=== PATIENT | male | born 1970 | race American Indian/Alaskan Native ===

== ENCOUNTER 2018-11-07 21:11 | Emergency (ER) | payer MEDICAID, MEDICARE ==
--- NOTE | 2018-11-07 21:35 | Emergency Department Report ---
Blank Doc - Documentation Documentation: This is a [id number] that presents with right flank pain with radiation to r ight upper abdominal. Stated has some nausea with no vomiting. Denies any urinary symptoms. This initial assessment/diagnostic orders/clinical plan/treatment(s) is/are subject to change based on patient's health status, clinical progression and re- assessment by fellow clinical providers in the ED. Further treatment and workup at subsequent clinical providers discretion. Patient/guardians urged not to elope from the ED as their condition may be serious if not clinically assessed and managed. Initial orders include: 1- Patient sent to [facility] for further evaluation and treatment 2- UA 3- Labs
[2018-11-07 22:05] LABS: Basophils # (Auto) 0.1 K/mm3 (0.0-0.1); Eosinophils # (Auto) 0.1 K/mm3 (0.0-0.4); Lymphocytes % (Auto) 26.5 % (13.4-35.0); Mean Corpuscular HGB Conc 36 % (32-34); Mean Corpuscular Volume 94 fl (84-94); Monocytes # (Auto) 0.6 K/mm3 (0.0-0.8); Monocytes % (Auto) 5.6 % (0.0-7.3); Platelet Count 288 K/mm3 (140-440); Red Blood Count 3.98 M/mm3 (3.65-5.03); Red Cell Distribution Width 14.2 % (13.2-15.2)
[2018-11-07 22:06] LABS: Bilirubin,Urine NEG (Negative); Blood,Urine SM (Negative); Color,Urine Straw (Yellow); Protein,Urine <15 mg/dL mg/dL (Negative); RBC,Urine < 1.0 /HPF (0.0-6.0); Urobilinogen,Urine < 2.0 mg/dL (<2.0)
[2018-11-07 22:14] LABS: Hematocrit 37.6 % (35.5-45.6); Hemoglobin 13.6 gm/dl (11.8-15.2)
[2018-11-07 22:21] LABS: BUN/Creatinine Ratio 11; Blood Urea Nitrogen 17 mg/dL (9-20); Calcium 8.8 mg/dL (8.4-10.2); Hemolysis Index 14
--- NOTE | 2018-11-08 00:14 | Cat Scan Report ---
PROCEDURE: CT abdomen and pelvis without contrast. TECHNIQUE: Computerized axial tomography of the abdomen and pelvis was performed without intravenous contrast. This study is performed without intravascular contrast material and its sensitivity for ab dominal and pelvic pathology, including neoplasms, inflammation, abscess, free fluid, thrombosis, art erial dissection and infarction, is reduced compared with a contrast enhanced study. CT DOSE LENGTH PRODUCT: 1445.89 mGycm HISTORY: Left flank pain. COMPARISONS: None. FINDINGS: The lung bases are grossly clear. There are no pleural effusions. The heart size is normal. There may be gynecomastia present. The liver, pancreas and spleen are grossly normal. The gallbladder is contr acted. There is no biliary dilatation. The adrenal glands are not enlarged. Both kidneys appear fairl y small. There are are extensive arterial calcifications in both kidneys. There is no hydronephrosis. There are probably some tiny renal cysts bilaterally. The abdominal aorta has a normal caliber. Ther e is atherosclerotic calcification in the abdominal aorta and iliac arteries. There is no retroperito sophia adenopathy. The unopacified gastrointestinal tract is unremarkable. A normal appendix is visible . The bladder is empty. The seminal vesicles are small. The prostate is incompletely imaged. The luis e onal skeleton appears intact. There are several enlarged veins in the anterior abdominal wall. These may represent collateral flow pathways. The inferior vena cava is quite narrow at the level of the re nal veins. Above and below this level the inferior vena cava has a more normal caliber. Patency of th e inferior vena cava would be better evaluated by ultrasound scanning. IMPRESSION: Probable gynecomastia. Small kidneys with extensive arterial calcifications. Probable ti ny renal cysts. Possible narrowing or stenosis of the inferior vena cava near the renal veins. Enlarg ed venous channels in the anterior abdominal wall, possibly representing collateral flow pathways. This document is electronically signed by Santiago Barahona MD., November 08 2018 12:11:23 AM ET
[2018-11-08] MEDS ORDERED: TORADOL IM ONE (00:52)
[2018-11-08 01:20] VITALS: BP 123/80
--- NOTE | 2018-11-08 01:26 | Emergency Department Report ---
ED Abdominal Pain HPI - General Chief Complaint: Abdominal Pain Stated Complaint: ABD PAIN Time Seen by Provider: 11/07/18 21:33 Source: patient Mode of arrival: Ambulatory Limitations: Other - History of Present Illness Initial Comments: Pt is deaf, is able to read and write, history obtained by writing on a sheet of paper. Pt writes responses. Pt presents with right sided flank pain that began yesterday. The patient states that the pain feels like it is wrapping around the the side of the abdomen. Pt has associated nausea. Pt denies any fever, urinary sx, and emesis. The patient describes the pain as a burning, pinching, and sharp pain. The patient states he has a hx of kidney stones about 10 years ago. Pt past abdominal surgical hx: cholecystecomy Complaint: flank pain Onset/Timin -: days(s) Location: R flank Migration to: RUQ Severity: moderate Severity scale (0 -10): 6 Quality: stabbing, burning Consistency: intermittent Associated Symptoms: nausea. denies: vomiting, diarrhea, fever, chills, dysuria, hematemesis, hematochezia, melena, hematuria, anorexia, syncope - Related Data Previous Rx's Medication Instructions Recorded Last Taken Type Baclofen [Lioresal] 10 mg PO TID #10 tab 11/08/18 Unknown Rx Naproxen 250 mg PO Q6HR #20 tablet 11/08/18 Unknown Rx Allergies Allergy/AdvReac Type Severity Reaction Status Date / Time No Known Allergies Allergy Unverified 11/07/18 21:20 ED Review of Systems ROS: Stated complaint: ABD PAIN Other details as noted in HPI Comment: All other systems reviewed and negative ED Past Medical Hx - Past Medical History Additional medical history: deaf - Surgical History Past Surgical History?: No - Social History Smoking Status: Never Smoker Substance Use Type: None - Medications Home Medications: Home Medications Medication Instructions Recorded Confirmed Last Taken Type Baclofen [Lioresal] 10 mg PO TID #10 tab 11/08/18 Unknown Rx Naproxen 250 mg PO Q6HR #20 tablet 11/08/18 Unknown Rx ED Physical Exam - General Limitations: Other General appearance: alert, in no apparent distress - Head Head exam: Present: atraumatic, normocephalic - Eye Eye exam: Present: normal appearance - ENT ENT exam: Present: normal exam - Respiratory Respiratory exam: Present: normal lung sounds bilaterally. Absent: respiratory distress, wheezes, rales, rhonchi, stridor, chest wall tenderness, accessory muscle use, decreased breath sounds, prolonged expiratory - Cardiovascular Cardiovascular Exam: Present: regular rate, normal rhythm, normal heart sounds. Absent: bradycardia, tachycardia, irregular rhythm, systolic murmur, diastolic murmur, rubs, gallop - GI/Abdominal GI/Abdominal exam: Present: soft, normal bowel sounds (right CVA tenderness, no abdominal tenderness). Absent: distended, guarding, rebound, rigid - Neurological Exam Neurological exam: Present: alert, oriented X3 - Psychiatric Psychiatric exam: Present: normal affect, normal mood - Skin Skin exam: Present: warm, dry, intact ED Course Vital Signs 11/07/18 11/08/18 11/08/18 21:36 01:16 01:17 Temperature 98 F 98.1 F Pulse Rate 76 72 Respiratory 16 16 16 Rate Blood Pressure 127/82 Blood Pressure 123/80 [Left] O2 Sat by Pulse 98 97 Oximetry 11/08/18 01:47 Temperature Pulse Rate Respiratory 16 Rate Blood Pressure Blood Pressure [Left] O2 Sat by Pulse Oximetry - Reevaluation(s) Reevaluation #1: 11/08/18 01:28 CT abd/pelvis was done on wrong pt which caused a delay in Mr. Roman receiving h is scan in a timely manner Reevaluation #2: 11/08/18 02:30 CT reading that is in patients chart right now is for another patient. entered incorrectly by the CT department. ED Medical Decision Making - Lab Data Result diagrams: 11/07/18 21:44 11/07/18 21:44 Laboratory Results - last 24 hr 11/07/18 11/07/18 11/07/18 21:38 21:44 21:44 WBC 11.2 H RBC 3.98 Hgb 13.6 Hct 37.6 MCV 94 MCH 34 H MCHC 36 H RDW 14.2 Plt Count 288 Lymph % (Auto) 26.5 [place] % (Auto) 5.6 Eos % (Auto) 1.0 Baso % (Auto) 1.0 Lymph # 3.0 [place] # 0.6 Eos # 0.1 Baso # 0.1 Seg Neutrophils % 65.9 Seg Neutrophils # 7.4 Sodium 137 Potassium 3.9 Chloride 102.2 Carbon Dioxide 22 Anion Gap 17 BUN 17 Creatinine 1.5 Estimated GFR > 60 BUN/Creatinine Ratio 11 Glucose 90 Calcium 8.8 Urine Color Straw Urine Turbidity Clear Urine pH 5.0 Ur Specific [employer] 1.010 Urine Protein <15 mg/dl Urine Glucose (UA) Neg Urine Ketones Neg Urine Blood Sm Urine Nitrite Neg Urine Bilirubin Neg Urine Urobilinogen < 2.0 Ur Leukocyte Esterase Neg Urine WBC (Auto) 1.0 Urine RBC (Auto) < 1.0 U Epithel Cells (Auto) 2.0 - Radiology Data Radiology results: report reviewed Ct abd/pelvis read by Dr. Telles: There has been a cholecystectomy, there are no kidney stones or ureteral stones. There is no hydronephrosis. There is no bowel obstruction, colitis, or enteritis. The appendix is normal. There is no ascites or free air, abscess or adenopathy. There is a defect at the inferior endplate of L4 suggesting Schmorls node. incidental bilateral hydroceles. - Medical Decision Making Pt presents for right sided flank pain since yesterday that radiates to the lateral side of the abdomen. Pt had right sided CVAT. Ct abd/pelvis was ordered which showed no acute abnormality. Believe pain to be due to a muscular strain. Will give pt anti inflammatory and small amount of muscle relaxer. Advised pt not to drive on muscle relaxer. Advised pt to follow up with PCP in the next 2-3 days. Discussed with pt by writing on sheet of paper to return to the ED if any new or worsening sx. Critical care attestation.: If time is entered above; I have spent that time in minutes in the direct care of this critically ill patient, excluding procedure time. ED Disposition Clinical Impression: Muscle strain Disposition: DC-01 TO HOME OR SELFCARE Is pt being admited?: No Does the pt Need Aspirin: No Condition: Stable Instructions: Muscle Strain (ED) Additional Instructions: Follow up with primary care doctor in the next 2-3 days. Do not take muscle relaxer while driving. Only take muscle relaxer at night. Prescriptions: Baclofen [Lioresal] 10 mg PO TID #10 tab Naproxen 250 mg PO Q6HR #20 tablet Referrals: PRIMARY CARE, [Primary Care Provider] - 3-5 Days Forms: Work/School Release Form(ED) Time of Disposition: 03:26 Print Language: ARABIC
== END 2018-11-08 04:00 | disposition home or self-care (01) ==
LOC: ED 21:11
DX: S39.011A Strain of muscle, fascia and tendon of abdomen, initial encounter (principal); X58.XXXA Exposure to other specified factors, initial encounter; Y93.9 Activity, unspecified; Y92.89 Other specified places as the place of occurrence of the external cause; Y99.8 Other external cause status
CPT/HCPCS: 36415; 74176; 80048; 81001; 85025; 96372; 99284; J1885

== ENCOUNTER 2021-07-14 18:05 | Emergency (ER) | payer MEDICARE, MEDICAID ==
[2021-07-14 18:32] VITALS: BP 133/83
[2021-07-14] MEDS ORDERED: ASPIRIN 325 MG TAB PO ONE (18:54)
--- NOTE | 2021-07-14 19:26 | Emergency Department Report ---
ED Chest Pain HPI - General Chief Complaint: Chest Pain Stated Complaint: CHEST PAIN Time Seen by Provider: 07/14/21 18:53 Source: patient Mode of arrival: Ambulatory Limitations: Other - History of Present Illness Initial Comments: Patient is deaf, pt states they are able to read and write and was asked if okay with continuing care by writing and pt agreed Patient is a 51-year-old biological male who presents emergency room with complaints of chest pain that began this morning. pt states the pain radiates over the the right side. Patient describes as a sharp pain. Patient has associated shortness of breath, dizziness, headache. Patient denies any nausea, vomiting, cough, fever, calf pain, leg swelling. Patient has a past medical history of HIV on antivirals. No allergies to medications. Non-smoker. Patient denies any family cardiac history. Patient denies recent travel or recent surgery. Patient is on hormone replacement therapy. - Related Data Previous Rx's Medication Instructions Recorded Last Taken Type Baclofen [Lioresal] 10 mg PO TID #10 tab 11/08/18 Unknown Rx Naproxen 250 mg PO Q6HR #20 tablet 11/08/18 Unknown Rx Naproxen 375 mg PO BID PRN #14 tablet 07/14/21 Unknown Rx Allergies Allergy/AdvReac Type Severity Reaction Status Date / Time No Known Allergies Allergy Verified 07/14/21 18:32 Heart Score - HEART Score History: Slightly suspicious EKG: Normal Age: 45-65 Risk factors: 1-2 risk factors Troponin: < normal limit HEART Score: 2 - EKG Read Time Time EKG Completed: 18:32 EKG Read Time: 18:36 ED Review of Systems ROS: Stated complaint: CHEST PAIN Other details as noted in HPI Comment: All other systems reviewed and negative ED Past Medical Hx - Past Medical History Previous Medical History?: No Hx HIV: Yes Additional medical history: deaf - Social History Smoking Status: Never Smoker Substance Use Type: None - Medications Home Medications: Home Medications Medication Instructions Recorded Confirmed Last Taken Type Baclofen [Lioresal] 10 mg PO TID #10 tab 11/08/18 Unknown Rx Naproxen 250 mg PO Q6HR #20 tablet 11/08/18 Unknown Rx Naproxen 375 mg PO BID PRN #14 tablet 07/14/21 Unknown Rx ED Physical Exam - General Limitations: Other General appearance: alert, in no apparent distress - Head Head exam: Present: atraumatic, normocephalic - Eye Eye exam: Present: normal appearance - ENT ENT exam: Present: mucous membranes moist - Respiratory Respiratory exam: Present: normal lung sounds bilaterally. Absent: respiratory distress, wheezes, rales, rhonchi, stridor, chest wall tenderness, accessory muscle use, decreased breath sounds, prolonged expiratory - Cardiovascular Cardiovascular Exam: Present: regular rate, normal rhythm, normal heart sounds. Absent: systolic murmur, diastolic murmur, rubs, gallop - Neurological Exam Neurological exam: Present: alert, oriented X3 - Psychiatric Psychiatric exam: Present: normal affect, normal mood - Skin Skin exam: Present: warm, dry, intact ED Course Vital Signs 07/14/21 07/14/21 18:30 23:53 Temperature 99 F Pulse Rate 72 76 Respiratory 18 18 Rate Blood Pressure 133/83 [Left] O2 Sat by Pulse 95 98 Oximetry ED Medical Decision Making - Lab Data Result diagrams: 07/14/21 19:11 07/14/21 19:11 Lab Results 07/14/21 07/14/21 07/14/21 Range/Units 19:11 19:11 19:11 WBC 8.3 (4.5-11.0) K/mm3 RBC 4.32 (3.65-5.03) M/mm3 Hgb 13.7 (11.8-15.2) gm/dl Hct 40.8 (35.5-45.6) % MCV 94 (84-94) fl MCH 32 (28-32) pg MCHC 34 (32-34) % RDW 13.9 (13.2-15.2) % Plt Count 312 (140-440) K/mm3 Lymph % (Auto) 43.5 H (13.4-35.0) % [place] % (Auto) 7.6 H (0.0-7.3) % Eos % (Auto) 2.7 (0.0-4.3) % Baso % (Auto) 1.0 (0.0-1.8) % Lymph # (Auto) 3.6 (1.2-5.4) K/mm3 [place] # (Auto) 0.6 (0.0-0.8) K/mm3 Eos # (Auto) 0.2 (0.0-0.4) K/mm3 Baso # (Auto) 0.1 (0.0-0.1) K/mm3 Seg Neutrophils % 45.2 (40.0-70.0) % Seg Neutrophils # 3.8 (1.8-7.7) K/mm3 D-Dimer 1426.25 H (0-234) ng/mlDDU Sodium 140 (137-145) mmol/L Potassium 4.9 (3.6-5.0) mmol/L Chloride 103.6 (98-107) mmol/L Carbon Dioxide 24 (22-30) mmol/L Anion Gap 17 mmol/L BUN 15 (9-20) mg/dL Creatinine 1.3 (0.8-1.3) mg/dL Estimated GFR > 60 ml/min BUN/Creatinine Ratio 12 % Glucose 92 (75-100) mg/dL Calcium 9.2 (8.4-10.2) mg/dL Total Bilirubin 0.40 (0.1-1.2) mg/dL AST 33 (5-40) units/L ALT 24 (7-56) units/L Alkaline Phosphatase 71 (35-129) units/L Troponin T < 0.010 (0.00-0.029) ng/mL Total Protein 7.6 (6.3-8.2) g/dL Albumin 4.3 (3.9-5) g/dL Albumin/Globulin Ratio 1.3 % 07/14/21 Range/Units 21:12 WBC (4.5-11.0) K/mm3 RBC (3.65-5.03) M/mm3 Hgb (11.8-15.2) gm/dl Hct (35.5-45.6) % MCV (84-94) fl MCH (28-32) pg MCHC (32-34) % RDW (13.2-15.2) % Plt Count (140-440) K/mm3 Lymph % (Auto) (13.4-35.0) % [place] % (Auto) (0.0-7.3) % Eos % (Auto) (0.0-4.3) % Baso % (Auto) (0.0-1.8) % Lymph # (Auto) (1.2-5.4) K/mm3 [place] # (Auto) (0.0-0.8) K/mm3 Eos # (Auto) (0.0-0.4) K/mm3 Baso # (Auto) (0.0-0.1) K/mm3 Seg Neutrophils % (40.0-70.0) % Seg Neutrophils # (1.8-7.7) K/mm3 D-Dimer (0-234) ng/mlDDU Sodium (137-145) mmol/L Potassium (3.6-5.0) mmol/L Chloride (98-107) mmol/L Carbon Dioxide (22-30) mmol/L Anion Gap mmol/L BUN (9-20) mg/dL Creatinine (0.8-1.3) mg/dL Estimated GFR ml/min BUN/Creatinine Ratio % Glucose (75-100) mg/dL Calcium (8.4-10.2) mg/dL Total Bilirubin (0.1-1.2) mg/dL AST (5-40) units/L ALT (7-56) units/L Alkaline Phosphatase (35-129) units/L Troponin T < 0.010 (0.00-0.029) ng/mL Total Protein (6.3-8.2) g/dL Albumin (3.9-5) g/dL Albumin/Globulin Ratio % - EKG Data EKG shows normal: sinus rhythm, intervals, QRS complexes, ST-T waves Rate: normal - EKG Data 07/14/21 19:27 LAD LAE no STEMI - Radiology Data Radiology results: report reviewed Ordering Physician: DEANNE PIZARRO Date of Service: 07/14/21 Procedure(s): XR chest routine 2V Accession Number(s): [id number] cc: DEANNE PIZARRO Fluoro Time In Minutes: CHEST 2 VIEWS INDICATION / CLINICAL INFORMATION: Chest Pain. COMPARISON: None available. FINDINGS: SUPPORT DEVICES: None. HEART / MEDIASTINUM: No significant abnormality. LUNGS / PLEURA: No significant pulmonary or pleural abnormality. No pneumothorax. ADDITIONAL FINDINGS: No significant additional findings. IMPRESSION: 1. No acute findings. Signer Name: Pete Figueroa MD Signed: 07/14/2021 7:21 PM Workstation Name: [id number] Transcribed By: TRAY Dictated By: Pete Figueroa MD Electronically Authenticated By: Pete Figueroa MD Signed Date/Time: 07/14/211920 DD/ 19 TD/TT: Ordering Physician: DEANNE PIZARRO Date of Service: 07/14/21 Procedure(s): CT angio chest Accession Number(s): [id number] cc: DEANNE PIZARRO CTA CHEST WITH CONTRAST INDICATION / CLINICAL INFORMATION: Chest pain with S.O.B., elevated D-dimer, on HRT. TECHNIQUE: Axial CT images were obtained through the chest after injection of 100 cc of Omnipaque 350 IV contrast. 3 plane MIP and/or 3D reconstructions were produced. All CT scans at this location are performed using CT dose reduction for ALARA by means of automated exposure control. COMPARISON: 11/07/2018 FINDINGS: PULMONARY ARTERIES: No pulmonary emboli. THORACIC AORTA: No significant abnormality. HEART: No significant abnormality. CORONARY ARTERY CALCIFICATION: None. MEDIASTINUM / LEIF: No significant abnormality. PLEURA: No pleural effusion. No pneumothorax. LUNGS: No acute air space or interstitial disease. ADDITIONAL FINDINGS: None. UPPER ABDOMEN: Left renal cyst. SKELETAL STRUCTURES: No significant osseous abnormality. IMPRESSION: 1. No CT evidence for pulmonary embolism. 2. No acute findings. Signer Name: Misha Paredes DO Signed: 07/14/2021 10:15 PM Workstation Name: [id number] Transcribed By: DAVID Dictated By: MISHA PAREDES DO Electronically Authenticated By: MISHA PAREDES DO Signed Date/Time: 07/14/212214 DD/ 05 TD/TT: - Medical Decision Making Patient is deaf, pt states they are able to read and write and was asked if okay with continuing care by writing and pt agreed Patient is a 51-year-old biological male who presents emergency room with complaints of chest pain that began this morning. pt states the pain radiates over the the right side. Patient describes as a sharp pain. Patient has associated shortness of breath, dizziness, headache. Patient denies any nausea, vomiting, cough, fever, calf pain, leg swelling. Patient has a past medical history of HIV on antivirals. No allergies to medications. Non-smoker. Patient denies any family cardiac history. Patient denies recent travel or recent surgery. Patient is on hormone replacement therapy. Vitals are normal. EKG with left axis deviation and left atrial enlargement, otherwise normal. Labs with elevated D-dimer, otherwise normal. Troponin is negative x2. Chest x-ray 1. No acute findings. given the patient is on HRT with elevated D-dimer and chest pain and shortness of breath, CTA ordered. CT angio chest shows 1. No CT evidence for pulmonary embolism. 2. No acute findings. Heart score is 2, low risk for cardiac event. Discussed all findings with patient and answer questions. Patient will be referred to outpatient cardiology. Discussed return precautions. Advised patient Please take medication as prescribed as needed. Follow-up with your primary care doctor. Follow-up with a children's author. Return to emergency room for any new or worsening symptoms. Critical care attestation.: If time is entered above; I have spent that time in minutes in the direct care of this critically ill patient, excluding procedure time. ED Disposition Clinical Impression: SOB (shortness of breath), Dizziness Chest pain Qualifiers: Chest pain type: unspecified Qualified Code(s): R07.9 - Chest pain, unspecified Disposition: 01 HOME / SELF CARE / HOMELESS Is pt being admited?: No Does the pt Need Aspirin: No Condition: Stable Instructions: Nonspecific Chest Pain, Adult, Shortness of Breath, Adult Additional Instructions: Please take medication as prescribed as needed. Follow-up with your primary care doctor. Follow-up with a children's author. Return to emergency room for any new or worsening symptoms. Prescriptions: Naproxen 375 mg PO BID PRN #14 tablet PRN Reason: pain Referrals: PRIMARY CARE, [Primary Care Provider] - 2-3 Days MILIND SHEETS MD [Staff Physician] - 2-3 Days Forms: Work/School Release Form(ED) Time of Disposition: 22:34 Print Language: CROATIAN
[2021-07-14 19:38] LABS: Basophils # (Auto) 0.1 K/mm3 (0.0-0.1); Eosinophils # (Auto) 0.2 K/mm3 (0.0-0.4); Eosinophils % (Auto) 2.7 % (0.0-4.3); Hematocrit 40.8 % (35.5-45.6); Hemoglobin 13.7 gm/dl (11.8-15.2); Lymphocytes # (Auto) 3.6 K/mm3 (1.2-5.4); Lymphocytes % (Auto) 43.5 % (13.4-35.0); Mean Corpuscular HGB Conc 34 % (32-34); Mean Corpuscular Volume 94 fl (84-94); Monocytes # (Auto) 0.6 K/mm3 (0.0-0.8); Monocytes % (Auto) 7.6 % (0.0-7.3); Platelet Count 312 K/mm3 (140-440); Red Blood Count 4.32 M/mm3 (3.65-5.03); Red Cell Distribution Width 13.9 % (13.2-15.2)
[2021-07-14 19:52] LABS: Alanine Aminotransferase 24 units/L (7-56); Albumin 4.3 g/dL (3.9-5); BUN/Creatinine Ratio 12; Blood Urea Nitrogen 15 mg/dL (9-20); Calcium 9.2 mg/dL (8.4-10.2); Hemolysis Index 90
--- NOTE | 2021-07-14 22:20 | Cat Scan Report ---
CTA CHEST WITH CONTRAST INDICATION / CLINICAL INFORMATION: Chest pain with S.O.B., elevated D-dimer, on HRT. TECHNIQUE: Axial CT images were obtained through the chest after injection of 100 cc of Omnipaque 350 IV contrast. 3 plane MIP and/or 3D reconstructions were produced. All CT scans at this location are performed using CT dose reduction for ALARA by means of automated exposure control. COMPARISON: 11/07/2018 FINDINGS: PULMONARY ARTERIES: No pulmonary emboli. THORACIC AORTA: No significant abnormality. HEART: No significant abnormality. CORONARY ARTERY CALCIFICATION: None. MEDIASTINUM / LEIF: No significant abnormality. PLEURA: No pleural effusion. No pneumothorax. LUNGS: No acute air space or interstitial disease. ADDITIONAL FINDINGS: None. UPPER ABDOMEN: Left renal cyst. SKELETAL STRUCTURES: No significant osseous abnormality. IMPRESSION: 1. No CT evidence for pulmonary embolism. 2. No acute findings. Signer Name: Misha Griffin DO Signed: 07/14/2021 10:15 PM Workstation Name: [id number]
--- NOTE | 2021-07-15 11:58 | Electrocardiograph Report ---
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
== END 2021-07-14 23:52 | disposition home or self-care (01) ==
LOC: ED 18:05
DX: R07.9 Chest pain, unspecified (principal); R06.02 Shortness of breath; R42 Dizziness and giddiness; Z21 Asymptomatic human immunodeficiency virus [HIV] infection status
CPT/HCPCS: 36415; 71046; 71275; 80053; 84484; 85025; 85379; 93005; 99284; Q9967